=== PATIENT | female | born 1980 | race Caucasian/White ===

== ENCOUNTER 2018-07-14 03:57 | Emergency (ER) | payer SELFPAY ==
[~2018-07-14] VITALS: Ht 162.6 cm; Wt 63.5 kg
[2018-07-14 04:00] VITALS: BP_SYST 113
[2018-07-14] MEDS ORDERED: LORA10TA7 PO (04:18)
[2018-07-14] MEDS ORDERED: FLUT1DIS3 IH (04:18)
[2018-07-14] MEDS ORDERED: ALBMDI INH (04:18)
[2018-07-14] MEDS ORDERED: PROMETHAZINE 6.25 MG/ CODEINE 10 MG/ 5 ML PO ONE (04:30)
[2018-07-14] MEDS ORDERED: IPRATROPIUM BROM 0.5 MG/2.5 ML VIAL.NEB (ATROVENT) IH ONE (04:30)
[2018-07-14] MEDS ORDERED: LevALBUTEROL HCL 1.25 MG/0.5 ML *CONC.* VIAL.NEB (XOPENEX CONC.) INH ONE ×2 (04:30→04:40)
[2018-07-14] MEDS ORDERED: IPRATROPIUM BROM 0.5 MG/2.5 ML VIAL.NEB (ATROVENT) INH ONE (04:40)
[2018-07-14] MEDS ORDERED: PREDNISONE 20 MG TABLET PO ONE (05:15)
[2018-07-14 05:25] VITALS: BP_SYST 110
== END 2018-07-14 05:25 | disposition home or self-care (01) ==
LOC: SED 03:57
DX: J45.901 Unspecified asthma with (acute) exacerbation (principal); R06.02 Shortness of breath
CPT/HCPCS: 94640; 99283; J7512; J7612